=== PATIENT | female | born 1950 | race Caucasian/White ===

== ENCOUNTER 2020-03-03 06:29 | Day surgery (SDC) | payer MEDICARE, SELFPAY ==
[2020-03-03] MEDS: Tropicam./Phenyleph. (1/2.5%) 5 ML BTL OS ×3 (06:47→06:59)
[2020-03-03 06:50] VITALS: BP 126/82; PULSE 67; RESP 16; TEMP 36.4; O2SAT 100
[2020-03-03] MEDS: Tetracaine 0.5% 4 ML BTL OS (07:22)
[2020-03-03] MEDS: Lidocaine 2% Jelly 6 ML SYR (07:23)
[2020-03-03] MEDS: Povidone-Iodine Ophth 30 ML BTL (07:23)
[2020-03-03] MEDS: Lidocaine 1% Pres-Free 5 ML VIAL (07:30)
[2020-03-03] MEDS: Trypan Blue 0.06% 0.5 ML SYR (07:31)
[2020-03-03] MEDS: Balanced Salt Soln.-PLUS 500 ML BAG (07:37)
[2020-03-03] MEDS: Duovisc Viscoelastic System EACH 1 EACH (07:39)
[2020-03-03] MEDS: Moxifloxacin-PF 1 MG/ML VIAL (07:52)
--- NOTE | 2020-03-03 07:59 | W.PM.DSUDISC ---
Discharge Plan Disposition Patient Disposition: HOME Condition: Good Discharge Details Attending Provider: Flavio Gonzalez Primary Care Provider: Jessi Nichols Home Meds and New Rx's Prescriptions: No Action hydrochlorothiazide 25 mg tablet 25 mg PO DAILY RF: 0 levothyroxine 112 mcg tablet 112 mcg PO DAILY RF: 0 Discharge Instructions Stand Alone Forms: Post-op Topical Cataract, Chichi Zhang (DSU) Discharge Orders Discharge Orders: Discharge Order (Routine); Ordered 03/03/20 Ordered By: Flavio Gonzalez DS: Diagnosis Discharge Diagnosis (1) Posterior subcapsular age-related cataract of left eye: Status: Resolved (2) Nuclear sclerotic cataract of left eye: Status: Resolved (3) Cortical cataract of left eye: Status: Resolved
--- NOTE | 2020-03-03 08:00 | ROE_ITS ---
Date of service: 03/03/20 Time of Service: 08:00 Operative Note Operative Note DATE OF PROCEDURE: 03/03/20 PRE-OP DIAGNOSIS: Nuclear/cortical/posterior subcapsular cataract, left eye Poor red reflex, left eye secondary to cataract POST-OP DIAGNOSIS: same PROCEDURE: Cataract extraction using phacoemulsification with intraocular lens implant, left eye, using capsular staining with Vision Blue SURGEON: Flavio Gonzalez ANESTHESIA: MAC (with local sub-tenon's anesthetic injection) COMPLICATIONS: None Patient was transported to: same day Patient's condition: stable Implants: Calin and Calin / [employer] Tecnis [id number] Indications: Progressive decreased vision due to cataract, left eye, with poor red reflex Procedure Description: CATARACT SURGERY OPERATIVE REPORT PREOPERATIVE DIAGNOSIS: 1. Nuclear/cortical/posterior subcapsular cataract, left eye 2. Poor red reflex secondary to #1 POSTOPERATIVE DIAGNOSIS: Same OPERATION: 1. Cataract extraction using phacoemulsification with posterior chamber intraocular lens implant, left eye. 2. Capsular staining with Vision Blue IOL: IOL Procurement Forester/Model: Calin & Calin / RANDALL Tecnis [id number] IOL Power: + 21.0 diopters IOL Serial Number: [id number] Optic Diameter: 6.0 mm Haptic/Overall Diameter: 13.0 mm PHACO INFO: Tre Cent[employer]ion Vision System with OZil and Active Fluidics Cumulative Dispersed Energy (CDE): 6.97 seconds SURGEON: Flavio Gonzalez MD, KIKE ANESTHESIA: Monitored A fabiola hospitalia Care (MAC), with local sub-tenon's anesthetic infiltration COMPLICATIONS: None SPECIMENS: None INDICATIONS FOR PROCEDURE: Patient is a 69-year-old lady with history of diminished visual acuity in her left eye secondary to the development of nuclear/cortical/posterior subcapsular cataract in the left eye. She she desires cataract surgery and attempt to improve and maximize her vision. PROCEDURE: The correct surgical eye was identified and marked as the left eye and the pupil was dilated in the preoperative area using mydriatics and cycloplegics. The dilated pupil size was 7.5 mm. No oral sedation was given. The patient was brought to the operating room where cardiopulmonary monitoring was instituted and surgical time-out was performed, confirming the correct operative eye and IOL power. Topical anesthesia was administered and ophthalmic povidone-iodine 5% was instilled into the conjunctival fornices. Lidocaine gel was applied to the cornea and the billy-ocular area was prepped with Betadine 10% solution and draped in the usual sterile fashion for intraocular surgery, including an aperture drape. A Tegaderm transparent film dressing was cut in half and used to cover the lashes and lid margins. Care was taken to sequester the lashes and lid margins under the Tegaderm dressing. A lid speculum was placed between the lids of the operative eye and the Ayse-Kalyn operating microscope was maneuvered into position. Paty scissors were then used to make a conjunctival buttonhole approximately 6mm posterior to the limbus in the inferonasal quadrant. Blunt dissection was carried out to expose bare sclera, and a blunt-tipped sub-tenon?s anesthesia cannula was introduced and passed posteriorly along the globe where non- preserved plain lidocaine was injected into posterior sub-Tenon?s space. A sideport knife was used to make a paracentesis port superiorly/superiortemporally. Intraocular phenylephrine/lidocaine was injected int the anterior chamber.. Air was then injected into the anterior chamber, followed by Vision Blue, which was painted over the anterior capsule and then irrigated out using BSS. The anterior chamber was filled with Tre Viscoat. A 2.4mm keratome knife was used to create a half-thickness groove at the limbus and then to construct a three-plane near-clear corneal tunnel extending 2.0mm into clear cornea at the 3:00 position. A flap was raised on the anterior capsule and capsulorhexis forceps were used to complete a continuous curvilinear capsulorhexis of 5.0 mm. Balanced salt solution was then used to perform cortical cleaving hydrodissection and nuclear hydrodelineation until the lens could be freely rotated within the capsular bag. The lens nucleus was then disassembled and removed within the capsular bag and iris plane using phacoemulsification. Residual cortical material was removed using the 45-degree angled silicone I/A tip with 0.3mm port. The posterior capsule was carefully polished to remove as much residual lens epithelial cells as safely possible. The capsular bag was then inflated and the anterior chamber deepened with viscoelastic. The lens implant described above was inserted into the capsular bag using the RANDALL [place] Injector. A Kuglen hook was used to dial the IOL into position. Residual viscoelastic was then removed first from posterior to the IOL, then from the anterior chamber using the I/A handpiece. The lens implant was noted to center nicely within the capsular bag. The incisions were stromally hydrated, and the anterior chamber was reformed using BSS. Then 0.5cc of moxifloxacin 1.0mg/ml were injected into the capsular bag and anterior chamber. The incisions were checked with a Weck spear and found to be secure. Several drops of ophthalmic povidone-iodine 5% were then applied to the eye followed by two drops of Imprimis combination prednisolone/moxifloxacin/nepafenac solution. The drapes were removed and a clear plastic protective eye shield was placed over the eye. The patient was then returned to Same Day Surgery in stable condition.
== END 2020-03-03 08:38 | disposition home or self-care (01) ==
PROVIDERS: PCP Registered Nurse; Visit Provider Ophthalmology
PROC: (CPT 66984; principal; 2020-03-03 07:30)
DX: H25.042 Posterior subcapsular polar age-related cataract, left eye (principal); E78.5 Hyperlipidemia, unspecified; I10 Essential (primary) hypertension; E03.9 Hypothyroidism, unspecified
CPT/HCPCS: 66984; V2632

== ENCOUNTER 2020-03-24 06:25 | Day surgery (SDC) | payer MEDICARE, SELFPAY ==
[2020-03-24 06:42] VITALS: BP 123/80; PULSE 63; RESP 16; TEMP 36.4; O2SAT 99
[2020-03-24] MEDS: Tropicam./Phenyleph. (1/2.5%) 5 ML BTL OD ×3 (06:48→06:55)
--- NOTE | 2020-03-24 07:17 | W.PM.DSUDISC ---
Discharge Plan Disposition Patient Disposition: HOME Condition: Good Discharge Details Attending Provider: Flavio Gonzalez Primary Care Provider: Jessi Nichols Home Meds and New Rx's Prescriptions: No Action multivitamin Tablet 1 tab PO DAILY RF: 0 hydrochlorothiazide 25 mg tablet 25 mg PO DAILY RF: 0 levothyroxine 112 mcg tablet 112 mcg PO DAILY RF: 0 Discharge Instructions Stand Alone Forms: Post-op Topical Cataract, Chichi Zhang (DSU) Discharge Orders Discharge Orders: Discharge Order (Routine); Ordered 03/24/20 Ordered By: lFavio Gonzalez DS: Diagnosis Discharge Diagnosis (1) Cortical cataract of right eye: Status: Resolved (2) Nuclear sclerotic cataract of right eye: Status: Resolved (3) Posterior subcapsular age-related cataract, right eye: Status: Resolved (4) Amblyopia of right eye: Status: Chronic
[2020-03-24] MEDS: Povidone-Iodine Ophth 30 ML BTL (07:27)
[2020-03-24] MEDS: Tetracaine 0.5% 4 ML BTL OD (07:27)
[2020-03-24] MEDS: Lidocaine 2% Jelly 6 ML SYR (07:27)
[2020-03-24] MEDS: Lidocaine 1% Pres-Free 5 ML VIAL (07:30)
[2020-03-24] MEDS: Balanced Salt Soln.-PLUS 500 ML BAG (07:30)
[2020-03-24] MEDS: Duovisc Viscoelastic System EACH 1 EACH (07:30)
[2020-03-24] MEDS: Trypan Blue 0.06% 0.5 ML SYR (07:37)
[2020-03-24] MEDS: Moxifloxacin-PF 1 MG/ML VIAL (07:51)
--- NOTE | 2020-03-24 08:01 | W.PM.OP ---
Date of service: 03/24/20 Time of Service: 08:01 Operative Note Operative Note DATE OF PROCEDURE: 03/24/20 PRE-OP DIAGNOSIS: Nuclear/cortical/posterior subcapsular cataract, right eye POST-OP DIAGNOSIS: same PROCEDURE: Cataract extraction using phacoemulsification with intraocular lens implantation, right eye, using capsular staining with Vision Blue SURGEON: Flavio Gonzalez ANESTHESIA: MAC (with local sub-tenon's anesthetic injection) PATHOLOGY: none sent COMPLICATIONS: None Patient was transported to: same day Patient's condition: stable Implants: Calin and Calin / [employer] Tecnis [id number] Indications: Progressive visual loss due to cataract, right eye Procedure Description: CATARACT SURGERY OPERATIVE REPORT PREOPERATIVE DIAGNOSIS: 1. Nuclear/cortical/posterior subcapsular cataract, right eye 2. Poor red reflex secondary to #1 3. Amblyopia, right eye POSTOPERATIVE DIAGNOSIS: Same OPERATION: 1. Cataract extraction using phacoemulsification with posterior chamber intraocular lens implant, right eye. 2. Capsular staining with Vision Blue IOL: IOL Blow Pit Helper/Model: Calin & Calin / RANDALL Tecnis [id number] IOL Power: + 25.5 diopters IOL Serial Number: [id number] Optic Diameter: 6.0mm Haptic/Overall Diameter: 13.0mm PHACO INFO: Tre Pulpo [employer]urion Vision System with OZil and Active Fluidics Cumulative Dispersed Energy (CDE): 8.32 seconds SURGEON: Flavio Gonzalez MD, KIKE ANESTHESIA: Monitored Anesthesia Care (MAC), with local sub-tenon's anesthetic infiltration COMPLICATIONS: None SPECIMENS: None INDICATIONS FOR PROCEDURE: The patient is a 69-year-old lady with history of amblyopia and strabismus of the right eye. She has previously undergone multiple eye muscle procedures. She has already undergone cataract surgery in her left eye and is doing well postoperatively. She now presents for cataract surgery in the right eye. PROCEDURE: The correct surgical eye was identified and marked as the right eye and the pupil was dilated in the preoperative area using mydriatics and cycloplegics. The dilated pupil size was 6.0 mm. No oral sedation was given. The patient was brought to the operating room where cardiopulmonary monitoring was instituted and surgical time-out was performed, confirming the correct operative eye and IOL power. Topical anesthesia was administered and ophthalmic povidone-iodine 5% was instilled into the conjunctival fornices. Lidocaine gel was applied to the cornea and the billy-ocular area was prepped with Betadine 10% solution and draped in the usual sterile fashion for intraocular surgery, including an aperture drape. A Tegaderm transparent film dressing was cut in half and used to cover the lashes and lid margins. Care was taken to sequester the lashes and lid margins under the Tegaderm dressing. A lid speculum was placed between the lids of the operative eye and the Ayse-Kalyn operating microscope was maneuvered into position. Paty scissors were then used to make a conjunctival buttonhole approximately 6mm posterior to the limbus in the inferonasal quadrant. Blunt dissection was carried out to expose bare sclera, and a blunt-tipped sub-tenon?s anesthesia cannula was introduced and passed posteriorly along the globe where non-preserved plain lidocaine was injected into posterior sub-Tenon?s space. A sideport knife was used to make a paracentesis port inferotemporally. Intraocular phenylephrine/lidocaine was injected into the anterior chamber. Air was injected into the anterior chamber, followed by Vision Blue, which was painted over the anterior capsule and then irrigated out with BSS. The anterior chamber was filled with Healon Pro. A 2.4mm keratome knife was used to create a half-thickness groove at the limbus and then to construct a three-plane near-clear corneal tunnel extending 2.0mm into clear cornea superiortemporally. A flap was raised on the anterior capsule and capsulorhexis forceps were used to complete a continuous curvilinear capsulorhexis of 5.0 mm. Balanced salt solution was then used to perform cortical cleaving hydrodissection and nuclear hydrodelineation until the lens could be freely rotated within the capsular bag. The lens nucleus was then disassembled and removed within the capsular bag and iris plane using phacoemulsification. Residual cortical material was removed using the I/A handpiece. The posterior capsule was carefully polished to remove as much residual lens epithelial cells as safely possible. The capsular bag was then inflated and the anterior chamber deepened with viscoelastic. The lens implant described above was inserted into the capsular bag using the RANDALL [place] Injector. A Kuglen hook was used to dial the IOL into position. Residual viscoelastic was then removed first from posterior to the IOL, then from the anterior chamber using the I/A handpiece. The lens implant was noted to center nicely within the capsular bag. The incisions were stromally hydrated, and the anterior chamber was reformed using BSS. Then 0.5cc of moxifloxacin 1.0mg/ml were injected into the capsular bag and anterior chamber. The incisions were checked with a Weck spear and found to be secure. Several drops of ophthalmic povidone-iodine 5% were then applied to the eye followed by two drops of Imprimis combination prednisolone/moxifloxacin/nepafenac solution. The drapes were removed and a clear plastic protective eye shield was placed over the eye. The patient was then returned to Same Day Surgery in stable condition.
== END 2020-03-24 08:25 | disposition home or self-care (01) ==
PROVIDERS: PCP Registered Nurse; Visit Provider Ophthalmology
PROC: (CPT 66982; principal; 2020-03-24 07:30)
DX: H25.011 Cortical age-related cataract, right eye (principal); H25.11 Age-related nuclear cataract, right eye; H25.041 Posterior subcapsular polar age-related cataract, right eye; H53.001 Unspecified amblyopia, right eye; H53.31 Abnormal retinal correspondence
CPT/HCPCS: 66982; V2632

== ENCOUNTER 2022-06-24 18:55 | Outpatient (REF) | payer MEDICARE, SELFPAY ==
[2022-06-24 14:52] LABS: Abs Immature Grans 0.02 10^3/uL (0.0-0.06); Absolute Basophil Count 0.08 10^3/uL (0.0-0.2); Absolute Eosinophil Count 0.09 10^3/uL (0.0-0.7); Absolute Lymphocyte Count 2.55 10^3/uL (1.2-3.4); Absolute Monocyte Count 0.46 10^3/uL (0.1-0.8); Absolute Neutrophil Count 3.28 10^3/uL (1.2-6.7); Basophils % 1.2; Eosinophils % 1.4; HCT 34.5 % (36.0-46.0); HGB 11.4 g/dL (11.2-15.7); Immature Grans % 0.3; Lymphocytes % 39.4; MCH 27.9 pg (27.0-33.0); MCV 85 fL (80-95); MPV 9.4 fL (8.0-11.0); Monocytes % 7.1; Neutrophils % 50.6; Platelet Count 361 10^3/uL (130-400); RBC 4.08 10^6/uL (3.93-5.22); RDW 16.1 % (11.7-14.6); RDW-SD 50.2 fL; Reticulocyte 1.2 % (0.5-2.4); WBC 6.48 10^3/uL (4.4-10.8)
[2022-06-24 15:35] LABS: Ferritin 17 ng/mL (8-252); Folate 14.1 ng/mL (8.6-20.0); Vitamin B12 551 pg/mL (193-986)
== END 2022-06-24 18:56 | disposition home or self-care (01) ==
LOC: NCHCN 18:55
PROVIDERS: PCP Registered Nurse; Visit Provider Nurse Practitioner Family
DX: D64.9 Anemia, unspecified (principal); E03.9 Hypothyroidism, unspecified; Z79.899 Other long term (current) drug therapy
CPT/HCPCS: 82607; 82728; 82746; 85025; 85045

== ENCOUNTER 2022-10-17 08:39 | Outpatient (REF) | payer MEDICARE, SELFPAY ==
[2022-10-17 14:35] LABS: HCT 36.7 % (36.0-46.0); HGB 12.1 g/dL (11.2-15.7); MCH 28.9 pg (27.0-33.0); MCV 88 fL (80-95); MPV 9.4 fL (8.0-11.0); Platelet Count 354 10^3/uL (130-400); RBC 4.18 10^6/uL (3.93-5.22); RDW 14.6 % (11.7-14.6); RDW-SD 47.1 fL; Reticulocyte 1.4 % (0.5-2.4); WBC 4.26 10^3/uL (4.4-10.8)
[2022-10-17 14:59] LABS: Iron 71 ug/dL (50-170)
[2022-10-17 15:01] LABS: ALT 24 U/L (14-59); AST 26 U/L (15-37); Albumin 3.7 g/dL (3.4-5.0); Alkaline Phosphatase 60 U/L (46-116); Anion Gap 8.1 mmol/L (3-11); BUN 20 mg/dL (7-18); Bilirubin, Total 0.4 mg/dL (0.2-1.0); CO2 28.9 mmol/L (21.0-32.0); CREATININE 0.8 mg/dL (0.55-1.02); Calcium 9.3 mg/dL (8.5-10.1); Calculated LDL 170 mg/dL (<100); Chloride 105 mmol/L (98-107); Cholesterol 299 mg/dL (<200); Estimated GFR 79.22 (mL/min/1.73m2); Ferritin 24 ng/mL (8-252); Glucose 98 mg/dL (74-106); HDL Cholesterol 120 mg/dL (40-60); Potassium 4.1 mmol/L (3.5-5.1); Sodium 142 mmol/L (136-145); TSH 0.86 uIU/mL (0.36-3.74); Total Protein 7.4 g/dL (6.4-8.2); Triglyceride 48 mg/dL (<150)
[2022-10-17 20:53] LABS: Total Iron Binding Capacity 367 ug/dL (250-450)
== END 2022-10-17 08:40 | disposition home or self-care (01) ==
LOC: NCHCN 08:39
PROVIDERS: PCP Registered Nurse; Visit Provider Nurse Practitioner Family
DX: E78.5 Hyperlipidemia, unspecified (principal); D64.9 Anemia, unspecified; E03.9 Hypothyroidism, unspecified; I10 Essential (primary) hypertension
CPT/HCPCS: 80053; 80061; 85027; 82728; 83540; 83550; 84443; 85045

== ENCOUNTER 2024-08-02 21:22 | Outpatient (REF) | payer MEDICARE, SELFPAY ==
[2024-08-02 22:09] LABS: COMMENT (LAB VIEW ONLY) 82.12 mg/dL; Microalb ug/mg Crea 7.9 ug/mg Cr
== END 2024-08-02 21:23 | disposition home or self-care (01) ==
LOC: NCHCN 21:22
PROVIDERS: PCP Registered Nurse; Visit Provider Nurse Practitioner Family
DX: I10 Essential (primary) hypertension (principal)
CPT/HCPCS: 82043; 82570